=== PATIENT | male | born 1945 | race Caucasian/White ===

== ENCOUNTER 2018-02-09 17:34 | Emergency (ER) | payer OTHER, BC ==
--- OUTSIDE RECORDS SUMMARY | 2018-02-09 17:37 | XMS REPORT | Clinical Summary ---
:1945 Author Organization [facility] Address [address] [place] [address] Care Team Providers Name Role Phone Luz Grace MD Primary Care Provider Allergies No Known Allergies Current Medications Prescription Sig. Disp. Refills Start Date End Date Status FENOFIBRIC ACID Take 135 mg by Active ORAL mouth daily. pravastatin Take 1 tablet (40 30 tablet 0 05/21/2017 Active (PRAVACHOL) 40 MG mg total) by tablet mouth daily. ezetimibe (ZETIA) Take 1 tablet (10 90 tablet 3 07/23/2017 Active 10 mg tablet mg total) by mouth daily. metoprolol TK 1 T PO QD FOR 90 tablet 3 08/05/2017 Active succinate XL 90 DAYS (TOPROL-XL) 50 mg 24 hr tablet tiotropium Spiriva with Active (SPIRIVA WITH HandiHaler 18 mcg HANDIHALER) 18 and inhalation mcg per capsules inhalation capsule aspirin (ECOTRIN) Take 1 tablet Active 81 MG enteric every day by oral coated tablet route. pantoprazole pantoprazole 40 Active (PROTONIX) 40 MG mg tablet,delayed EC tablet release losartan-hydrochl Take 1 tablet by 90 tablet 3 08/21/2017 Active orothiazide mouth daily. 9 (HYZAAR) 50-12.5 mg per tablet hydrALAZINE hydralazine 25 mg tablet Active (APRESOLINE) 25 One tab PO QD MG tablet sildenafil, TAKE 1 TO 2 ONCE 0 11/04/2017 Active antihypertensive, DAILY PRIOR TO (REVATIO) 20 mg SEXUAL ACTIVITY tablet multivit-min/foli Take by mouth. Active c/vit K/lycop (ONE-A-DAY MEN'S 50 PLUS ORAL) choline Take 1 capsule 30 capsule 11 03/05/2016 Discontinued fenofibrate (135 mg total) by 7 (TRILIPIX) 135 mg mouth daily. capsule metoprolol TK 1 T PO QD FOR 90 tablet 3 07/11/2016 Discontinued succinate XL 90 DAYS 8 (TOPROL-XL) 50 mg 24 hr tablet hydrALAZINE TK 1 T PO BID 5 11/03/2016 Discontinued (APRESOLINE) 25 8 MG tablet aspirin (ECOTRIN) Take 81 mg by Discontinued 81 MG enteric mouth daily. 8 coated tablet pravastatin Take 40 mg by Discontinued (PRAVACHOL) 40 MG mouth daily. 8 tablet ezetimibe (ZETIA) Take 1 tablet (10 90 tablet 3 01/14/2017 Discontinued 10 mg tablet mg total) by 8 mouth daily. choline Take 1 capsule 90 capsule 3 02/27/2017 Discontinued fenofibrate (135 mg total) by 8 (TRILIPIX) 135 mg mouth daily. capsule pravastatin Take 1 tablet (40 90 tablet 3 05/20/2017 Discontinued (PRAVACHOL) 40 MG mg total) by 8 tablet mouth daily. losartan-hydrochl Take 1 tablet by 90 tablet 3 08/13/2017 Discontinued orothiazide mouth daily. 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 Encounters Date Type Specialty Care Team Description 11/07/2017 Lab Lab Cesar Fairbanks Aortic valve MD Marcelo stenosis, etiology of cardiac valve disease unspecified 11/07/2017 Hospital Encounter Procedural Cesar Fairbanks Aortic valve Cardiology MD Marcelo stenosis, etiology of cardiac valve disease unspecified 11/07/2017 Multidisciplinary Visit Cardiology Duc Estes Nonrheumatic aortic MMD Colt valve stenosis (Primary Dx) 11/07/2017 Procedure Pass Procedural Cardiology 11/07/2017 Surgery Procedural Cesar Fairbanks Cv rotational xray Cardiology MD Marcelo [[id number] (CPT)] 11/01/2017 Orders Only Jovita, Aortic valve LYNDA Blanchard stenosis, etiology of cardiac valve disease unspecified (Primary Dx) 09/16/2017 Orders Only Cardiology Ernestina Tsang, Aortic valve MA disorder (Primary Dx) 09/16/2017 Orders Only Cardiology Sabine, Cardiac arrhythmia, YE Johnson unspecified cardiac arrhythmia type (Primary Dx) 08/21/2017 Orders Only Cardiology Sumeet Camargo MA 08/13/2017 Office Visit Cardiology Lambert Carmona Aortic valve disorder ( Primary Dx); MD Shaila Essential hypertension 07/23/2017 Refill Cardiology Serenity, Med Refill Lisbet, MA 07/19/2017 Telephone Cardiology Serenity, Return Call Lisbet, YE 07/17/2017 Telephone Cardiology Duc Estes pt, MD copywriter for b/p 05/21/2017 Orders Only Cardiology Sumeet Camargo MA 05/20/2017 Refill Cardiology Serenity, Med Refill Lisbet, MA 03/14/2017 Telephone Cardiology Duc Estes MD 02/27/2017 Refill Cardiology Serenity, Med Refill Lisbet, MA after 02/08/2017 Family History Medical History Relation Name Comments Emphysema Father Dementia Mother Relation Name Status Comments Father Mother Social History Tobacco Use Types Packs/Day Years Used Date Former Smoker Smokeless Tobacco: Never Used Alcohol Use Drinks/Week oz/Week Comments Yes Sex Assigned at Date Recorded Not on file Last Filed Vital Signs Vital Sign Reading Time Taken Blood Pressure 162/83 11/07/2017 2:21 PM CDT Pulse 72 11/07/2017 2:21 PM CDT Temperature 36.8 C (98.2 F) 11/07/2017 2:21 PM CDT Respiratory Rate 14 11/07/2017 2:21 PM CDT Oxygen Saturation - - Inhaled Oxygen Concentration - - Weight 89.8 kg (198 lb) 11/07/2017 2:21 PM CDT Height 185.4 cm (6' 1") 11/07/2017 2:21 PM CDT Body Mass Index 26.12 11/07/2017 2:21 PM CDT Plan of Treatment Date Type Specialty Care Team Description 08/12/2018 Office Visit Cardiology Lambert Carmona MD [address] [address] [phone] 10/30/2018 Multidisciplinary Visit Cardiology Duc Estes MD [address] [facility] [address] [place] [address] Health Maintenance Due Date Last Done Comments COLON CANCER SCREENING 1996 SHINGRIX VACCINE (#1) 1996 ZOSTER VACCINE 2006 PNEUMOCOCCAL POLYSACCHARIDE VACCINE AGE 65 12/15/2011 AND OVER INFLUENZA VACCINE 11/13/2017 02/01/2015 PNEUMOCOCCAL-13 Completed 08/02/2015, 02/01/2015 Procedures Procedure Name Priority Date/Time Associated Diagnosis Comments CV ROTATIONAL XRAY Routine 11/07/2017 3:46 Aortic valve Results for this PM CDT stenosis, etiology procedure are in of cardiac valve the results disease unspecified section. HEMOGLOBIN Routine 11/07/2017 3:15 Aortic valve Results for this PM CDT stenosis, etiology procedure are in of cardiac valve the results disease unspecified section. B NATRIURETIC PEPTIDE Routine 11/07/2017 3:15 Aortic valve Results for this PM CDT stenosis, etiology procedure are in of cardiac valve the results disease unspecified section. ECG 12-LEAD Routine 11/07/2017 2:19 Nonrheumatic aortic Results for this PM CDT valve stenosis procedure are in the results section. ECHOCARDIOGRAM 2D Routine 11/07/2017 2:05 Aortic valve Results for this COMPLETE W MMODE PM CDT disorder procedure are in SPECTRAL COLOR DOPPLER the results (36217) section. CV HOLTER MONITOR 24 Routine 09/12/2017 12:00 HOUR AM CDT after 02/08/2017 Results Cv laundry laborer procedure (11/07/2017 3:46 PM) Narrative Performed At The patient was taken to the cardiac catheterization laboratory where he [facility] underwent rotational x-ray of the thorax centered around the Core Valve valve. The valve was carefully inspected. There was no evidence of wire fracture, frame deformity, or device migration. Performing Organization Address City/State/Zipcode Phone Number [facility] [address] [place] [address] Hemoglobin (11/07/2017 3:15 PM) HGB 14.2 14.0 - 18.0 g/dL [facility] DEPARTMENT OF PATHOLOGY AND GENOMIC MEDICINE Specimen Blood Performing Organization Address City/State/[facility] Phone Number [facility] DEPARTMENT OF PATHOLOGY AND [address] [place] [address] [facility] B natriuretic peptide (11/07/2017 3:15 PM) BNP 54 0 - 100 pg/mL [facility] DEPARTMENT OF PATHOLOGY AND [facility] MEDICINE Specimen Blood Performing Organization Address [facility] Phone Number [facility] DEPARTMENT OF PATHOLOGY AND [address] [place] [address] [facility] ECG 12 lead (11/07/2017 2:19 PM) Ventricular rate 78 [facility] Atrial rate 78 [facility] [place] interval 164 [facility] QRSD interval 98 [facility] QT interval 390 [facility] QTC interval 444 [facility] P axis 1 58 [facility] QRS axis 1 28 [facility] T wave axis 63 [facility] EKG impression Normal sinus rhythm-Normal ECG-In automated [facility] comparison with ECG of 08-NOV-2016 14:17,-No significant change was found- Performing Organization Address [facility] Phone Number [facility] [address] [place] [address] Echocardiogram complete w contrast and 3D if needed (11/07/2017 2:05 PM) Narrative Performed At [facility] Echocardiography Report Pat.Name:Tyler BALLARD.ID:[id number] .Date: 11/07/2017 Refer.MD:DUC ESTES MD Exam Time: 12:59:00 PM Study Type:Routine Echo Height:73inWeight: 198lb BSA: 2.14 m2 DOBAge:1945,71Y Sex: MALEBP:162/83 HR:78 bpm Sonogrphr: DENISE Givens FASE Pat. Stat.:OutpatientRoom:[place] [address] Study Status:Final Echo Event ID:[id number] Order ID:[id number] Reason for Study:Prosthetic valve, no dysfunction -Routine (<3yr), Valvular disease, known -re-eval with status change History / Clinical:Congestive Heart Failure, Valvular Heart Disease; Aortic Stenosis Procedures:2D Echo, Colorflow Doppler Race:C SUMMARY: LV function is hyperdynamic Diastolic dysfunction Grade I (Mild): Impaired relaxation with normal LV filling pressures. Stable appearing Bioprosthetic Core Valve 23-mm is visualized ([id number]). Transcatheter AV Doppler velocity index is 0.6 (normal >0.50). Aortic valve high velocity and pressure gradient is secondary to high flow state. FINDINGS: LV: LV size is normal. There is mild concentric LV hypertrophy. LVfunction is hyperdynamic. Estimated EF is >70%. RV: RV size is normal. RV function is normal. LA: LA volume is moderately enlarged. RA: RA size is normal. AO: Aortic root is normal in size. FAHAD: No pericardial effusion. AV: Bioprosthetic Core Valve 23-mm is visualized ([id number]).No evidence of aortic regurgitation. TranscatheterAV Doppler velocity index is 0.6 (normal >0.50).Aortic valve high velocity and pressure gradient is secondaryto high flow state. MV: Mild mitral annular calcification. A trace of mitral regurgitation. PV: Pulmonic valve not well seen. TV: No structural TV abnormalities noted. A trace of tricuspid regurgitation Bishop: LV relaxation is impaired. LV filling pressure is normal. Diastolicdysfunction Grade I (Mild): Impaired relaxation withnormal LV filling pressures. Other:Insufficient TR jet to estimate PA systolic pressure MEASUREMENTS: 2D Parasternal Long [place] LVIDd4.8 cmIndex2.2 cm/m LA Ds4.7 cm LVIDs2.5 cm LV Cqfv103.7 g(122-174) LV%fs 47.8 % RWT0.5 IVSd 1.7 cmLVOT 1.8 cm LVPWd1.1 cm LA Sng Plane LA Area 26.6 cm2(8.8-23.4) LA Vol97.2 ml Index45.4 ml/m LA LngAx 6 cm DOPPLER AV For Flow/PATTY AV pkVel 288.5 cm/s (100-170) AV AC/ET 0.3 AV mnVel 189 cm/Sunny TVI59.6 cm AV pkPG 33.3 [id number] cm/s2 AV Mean G 17.7 mmHgAV TcIm589.6 cm/s2 AV AC 98 msec (83-118) AV Area1.6 cm2(3-5) AV ET315 msec LVOT For Flow LVOT Area2.5 cm2 LVOT SV 94.8 ml XLRSnhVgv967.1 cm/sHR82.2 bpm LVOTpkPG 9.9 mmHgLVOT CO7.8 l/min LVOTmnPG 5.6 mmHgLVOT CI3.6 l/m/m2 LVOT TVI37.3 cm Signed 11/08/2017 08:19 AM Ezio Browning MD Procedure Note Interface, Radiology Results In - 11/08/2017 8:20 AM CDT [facility] Echocardiography Report Pat.Name: KEVIN BALLARD Pat.ID: [id number] .Date: 11/07/2017 Refer.MD: DUC ESTES MD Exam Time: 12:59:00 PM Study Type:Routine Echo Height: 73in Weight: 198lb BSA: 2.14 m2 Age: 9 1945,71Y Sex: MALE BP: 162/83 HR: 78 bpm Sonogrphr: DENISE Givens FASE Pat. Stat.:Outpatient Room: [place] [address] Study Status:Final Echo Event ID:[id number] Order ID: [id number] Reason for Study:Prosthetic valve, no dysfunction -Routine (<3yr), Valvular disease, known -re-eval with status change History / Clinical:Congestive Heart Failure, Valvular Heart Disease; Aortic Stenosis Procedures:2D Echo, Colorflow Doppler Race: C SUMMARY: LV function is hyperdynamic Diastolic dysfunction Grade I (Mild): Impaired relaxation with normal LV filling pressures. Stable appearing Bioprosthetic Core Valve 23-mm is visualized ([id number]). Transcatheter AV Doppler velocity index is 0.6 (normal >0.50). Aortic valve high velocity and pressure gradient is secondary to high flow state. FINDINGS: LV: LV size is normal. There is mild concentric LV hypertrophy. LV function is hyperdynamic. Estimated EF is >70%. RV: RV size is normal. RV function is normal. LA: LA volume is moderately enlarged. RA: RA size is normal. AO: Aortic root is normal in size. FAHAD: No pericardial effusion. AV: Bioprosthetic Core Valve 23-mm is visualized ([id number]). No evidence of aortic regurgitation. Transcatheter AV Doppler velocity index is 0.6 (normal >0.50). Aortic valve high velocity and pressure gradient is secondary to high flow state. MV: Mild mitral annular calcification. A trace of mitral regurgitation. PV: Pulmonic valve not well seen. TV: No structural TV abnormalities noted. A trace of tricuspid regurgitation Bishop: LV relaxation is impaired. LV filling pressure is normal. Diastolic dysfunction Grade I (Mild): Impaired relaxation with normal LV filling pressures. Other: Insufficient TR jet to estimate PA systolic pressure MEASUREMENTS: 2D Parasternal Long [place] LVIDd 4.8 cm Index 2.2 cm/m LA Ds 4.7 cm LVIDs 2.5 cm LV Mass 273.7 g (122-174) LV%fs 47.8 % RWT 0.5 IVSd 1.7 cm LVOT 1.8 cm LVPWd 1.1 cm LA Sng Plane LA Area 26.6 cm2 (8.8-23.4) LA Vol 97.2 ml Index 45.4 ml/m LA LngAx 6 cm DOPPLER AV For Flow/PATTY AV pkVel 288.5 cm/s (100-170) AV AC/ET 0.3 AV mnVel 189 cm/s AV TVI 59.6 cm AV pkPG 33.3 mmHg AVpkAcRt 6928 cm/s2 AV Mean G 17.7 mmHg AV DeRt 915.6 cm/s2 AV AC 98 msec (83-118) AV Area 1.6 cm2 (3-5) AV ET 315 msec LVOT For Flow LVOT Area 2.5 cm2 LVOT SV 94.8 ml LVOTpkVel 157.1 cm/s HR 82.2 bpm LVOTpkPG 9.9 mmHg LVOT CO 7.8 l/min LVOTmnPG 5.6 mmHg LVOT CI 3.6 l/m/m2 LVOT TVI 37.3 cm Signed 11/08/2017 08:19 AM Ezio Browning MD Performing Organization Address City/State/Zipcode Phone Number [facility] [address] [place] [address] CV Holter monitor 24 hour (09/12/2017) Narrative Performed At after 02/08/2017 Insurance Payer Benefit Plan / Group Subscriber ID Type Phone Address MEDICARE MEDICARE PART A AND B xxxxxxxxxx Medicare [place], [place] BCBS BCBS PAR/TRAD PLAN xxxxxxxxxxxx Indemnity [phone] [place] [phone]
[2018-02-09 18:08] LABS: Absolute Lymphocytes (CBC) 2.4 K/uL (0.7-4.9); Absolute Monocytes 1.2 K/uL (0.1-1.3); Absolute Neutrophil 7.3 K/uL (1.8-8.0); Basophils % 0.6 % (0-1.3); Eosinophils % 0.8 % (0-4.4); Hematocrit 43.9 % (39.6-49.0); Lymphocytes % 21.9 % (15.3-44.8); MCH 29.8 pg (27.0-35.0); MCV 89.8 fL (80-100); MPV 8.9 fL (7.6-11.3); RBC Red Blood Cell Count 4.89 M/uL (4.33-5.43)
[2018-02-09 18:23] LABS: Potassium 3.6 mmol/L (3.5-5.1)
[2018-02-09] MEDS ORDERED: FENTANYL CITR 100 MCG/2 ML ONE (18:33)
[2018-02-09] MEDS ORDERED: TETANUS & DIPHTHERIA TOX,ADULT 0.5 ML VIAL ONE (18:34)
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
[2018-02-09] MEDS ORDERED: HYDROCODONE/APAP 7.5/325 MG TAB ONE (19:32)
== END 2018-02-09 19:31 | disposition home or self-care (01) ==
LOC: ER 17:34
PROC: 0JQ10ZZ Repair Face Subcutaneous Tissue and Fascia, Open Approach (ICD-10-PCS; principal; 2018-02-09)
DX: S01.81XA Laceration without foreign body of other part of head, initial encounter (principal); S22.49XA Multiple fractures of ribs, unspecified side, initial encounter for closed fracture; X58.XXXA Exposure to other specified factors, initial encounter; Y93.89 Activity, other specified; Y92.814 Boat as the place of occurrence of the external cause; Z23 Encounter for immunization; Z79.82 Long term (current) use of aspirin
CPT/HCPCS: 12013; 36415; 70450; 71260; 72125; 74177; 80048; 85025; 86850; 86900; 86901; 90714; 96374; 99285; J3010; Q9967